=== PATIENT | male | born 1970 | race Hispanic/Latino ===

== ENCOUNTER 2017-07-19 19:17 | Emergency (ER) | payer OTHER ==
[~2017-07-19] VITALS: Ht 175.3 cm; Wt 90.7 kg
[~2017-07-19 19:17] MED LIST: AMOXICILLIN500 M1 PO
[2017-07-19] MEDS ORDERED: ACETAMINOPHEN 325 MG TAB ONE (19:52)
--- NOTE | 2017-07-19 20:36 | Diagnostic Imaging Report ---
EXAMINATION: CHEST 2 VIEWS 07/19/2017 7:48 PM COMPARISON: None INDICATION: Cough DISCUSSION: LINES: None. LUNGS: The lungs are well inflated and clear. No pneumonia or pulmonary edema. There are scattered calcified granulomas. PLEURA: No pleural effusion or pneumothorax. HEART AND MEDIASTINUM: The cardiomediastinal silhouette is unremarkable. BONES AND SOFT TISSUES: No acute osseous lesion. The soft tissues are normal. IMPRESSION: No acute cardiopulmonary disease. Aldair Dsouza MD Signed by: Dr. Aldair Dsouza M.D. on 07/19/2017 8:32 PM
[2017-07-19 20:37] LABS: STREPTOCOCCUS GRP A ANTIGEN NEGATIVE (NEGATIVE)
[2017-07-19 20:45] LABS: INFLUENZAE A&B ANTIGEN (RAPID) POSITIVE FLU A (NEGATIVE)
== END 2017-07-19 21:14 | disposition home or self-care (01) ==
LOC: ER 19:17
DX: R50.9 Fever, unspecified (principal); R05 Cough; J11.1 Influenza due to unidentified influenza virus with other respiratory manifestations
CPT/HCPCS: 71020; 83518; 87070; 87400; 99283